=== PATIENT | female | born 1960 | race Caucasian/White ===

== ENCOUNTER 2018-11-20 09:02 | Emergency (ER) | payer OTHER ==
[~2018-11-20] VITALS: Ht 157.4 cm; Wt 80.3 kg
[~2018-11-20 09:02] MED LIST: 'PARAFON FORTE500 M1 PO; ALBUTEROL0.09 MG/A2 IH; ALBUTEROL0.09 MG/A2 INH; ASPIRIN ADULT L81 M1 PO; AUGMENTIN 875 M1 TAB PO; CIPROFLOXACIN500 MG PO; CLARITIN10 MG PO; CYCLOBENZAPRINE10 MG PO; DARVOCET N 1001 TAB PO; DAYPRO600 M1 PO; DIFLUCAN150 MG PO; FLEXERIL10 MG PO; FLEXERIL5 MG PO; GABAPENTIN300 MG PO; GLUCOPHAGE1000 MG PO; GLUCOTROL5 M1 PO; HYDROCODONE BIT1 T11 PO; JANUVIA100 MG PO; JANUVIA50 MG PO; LANTUS100 U/ML SC; LEVEMIR100 U/ML SC; LEVOFLOXACIN500 MG PO; MEDROL DOSEPAK4 MG PO; MOTRIN800 MG PO; Motrin,Rufen800 MG PO; NAPROSYN500 MG PO; NORCO 325 MG-51 TAB PO; NORFLEX100 MG PO; PERCOCET 325 MG1 TA2 PO; PERCOCET 325 MG1 TA7 PO; PREDNISONE10 MG PO; PREDNISONE20 M1 PO; PROTONIX40 MG PO; ROBAXIN750 MG PO; ROBITUSSIN AC 10 MG/ PO; ROBITUSSIN AC 110 ML PO; SINGULAIR10 MG PO; SKELAXIN800 MG PO; TESSALON PERLE100 M1 PO; TOBRADEX 0.1%-0.5 ML OPH; VIBRAMYCIN100 MG PO; VICODIN 5/500 505 MG PO; VICODIN 500 MG-1 TAB PO; VICODIN ES 7501 TAB PO; ZITHROMAX Z PA250 MG PO; ZITHROMAX250 MG PO; ZOCOR40 MG PO
[2018-11-20] MEDS ORDERED: FLONASE ALLERG9.9 ML NAS (11:29)
[2018-11-20] MEDS ORDERED: ZYRTEC10 MG PO (11:29)
== END 2018-11-20 11:42 | disposition home or self-care (01) ==
LOC: ED 09:02
DX: M25.562 Pain in left knee (principal); M17.12 Unilateral primary osteoarthritis, left knee; J32.8 Other chronic sinusitis; Z98.890 Other specified postprocedural states; Z90.89 Acquired absence of other organs; X50.1XXA Overexertion from prolonged static or awkward postures, initial encounter; Y93.89 Activity, other specified; Y92.89 Other specified places as the place of occurrence of the external cause; Y99.9 Unspecified external cause status

== ENCOUNTER 2019-10-01 14:08 | Emergency (ER) | payer SELFPAY ==
[~2019-10-01] VITALS: Ht 157.4 cm; Wt 85.3 kg
[~2019-10-01 14:08] MED LIST changes: +FLONASE ALLERG9.9 ML NAS; +ZYRTEC10 MG PO
[2019-10-01 14:52] LABS: BASO # 0.1 10*3/uL (0.0-0.1); BASO % 1.7 % (0.0-1.0); EOS # 0.2 10*3/uL (0.0-0.4); EOS % 3.3 % (1.0-4.0); HEMATOCRIT 46.9 % (37.0-47.0); HEMOGLOBIN 15.2 g/dl (12.0-16.0); LYMPH # 1.9 10*3/uL (1.3-4.4); LYMPH % 33.4 % (27.0-41.0); MEAN CELL VOLUME 90.9 fl (81.0-99.0); MEAN CORPUSCULAR HGB 29.5 pg (27.0-31.0); MEAN CORPUSCULAR HGB CONC 32.4 g/dl (33.0-37.0); MEAN PLATELET VOLUME 9.3 fl (9.6-12.3); MONO # 0.4 10*3/uL (0.1-1.0); MONO % 6.6 % (3.0-9.0); NEUT # 3.2 10*3/uL (2.3-7.9); NEUT % 54.8 % (47.0-73.0); PLATELET COUNT AUTOMATED 208 10*3/uL (130-400); RED BLOOD COUNT 5.16 10*6/uL (4.10-5.10); RED CELL DISTRI WIDTH 12.7 % (0-14.5); WHITE BLOOD COUNT 5.8 10*3/uL (4.8-10.8)
[2019-10-01 15:02] LABS: ACT PARTIAL THROMBO TIME 27.7 SECONDS (20.0-32.1); INTERNATIONAL NORM RATIO 0.9 (2.0-3.5)
[2019-10-01 15:09] LABS: ALBUMIN 3.6 gm/dl (3.1-4.5); ALKALINE PHOSPHATASE 94 U/L (45-117); BUN 6 mg/dl (7-24); CHLORIDE 105 mmol/L (98-107); CREATININE 0.76 mg/dL (0.55-1.02); LIPASE 48 U/L (73-393); POTASSIUM 3.6 mmol/L (3.5-5.1); SGOT/AST 12 IU/L (3-35); SGPT/ALT 17 U/L (12-78); SODIUM 138 mmol/L (136-145); TOTAL PROTEIN 8.1 gm/dL (6.4-8.2); TROPONIN I < 0.015 ng/ml (<0.045)
[2019-10-01] MEDS ORDERED: PROAIR HFA8.5 GM INH (16:35)
[2019-10-01] MEDS ORDERED: MEDROL DOSEPAK4 MG PO (16:35)
== END 2019-10-01 16:47 | disposition home or self-care (01) ==
LOC: ED 14:08
PROVIDERS: Nurse Practitioner Family
DX: J40 Bronchitis, not specified as acute or chronic (principal); M19.90 Unspecified osteoarthritis, unspecified site; K21.9 Gastro-esophageal reflux disease without esophagitis; E11.9 Type 2 diabetes mellitus without complications; F17.200 Nicotine dependence, unspecified, uncomplicated

== ENCOUNTER 2019-11-15 13:23 | Emergency (ER) | payer BC ==
[~2019-11-15] VITALS: Ht 157.4 cm; Wt 86.2 kg
[~2019-11-15 13:23] MED LIST changes: +PROAIR HFA8.5 GM INH
[2019-11-15] MEDS ORDERED: PREDNISONE20 M1 PO (14:45)
[2019-11-15] MEDS ORDERED: PROVENTIL HFA6.7 GM INH (14:45)
[2019-11-15] MEDS ORDERED: AVPAK AZITHROM250 MG PO (14:45)
== END 2019-11-15 14:50 | disposition home or self-care (01) ==
LOC: ED 13:23
DX: J40 Bronchitis, not specified as acute or chronic (principal); B34.9 Viral infection, unspecified; M19.90 Unspecified osteoarthritis, unspecified site; E11.9 Type 2 diabetes mellitus without complications; E66.9 Obesity, unspecified; I10 Essential (primary) hypertension; K21.9 Gastro-esophageal reflux disease without esophagitis; G89.29 Other chronic pain; Z79.899 Other long term (current) drug therapy; F17.200 Nicotine dependence, unspecified, uncomplicated; Z98.890 Other specified postprocedural states

== ENCOUNTER 2020-02-14 15:48 | Emergency (ER) | payer OTHER, BC ==
[~2020-02-14] VITALS: Ht 157.4 cm; Wt 83.9 kg
[~2020-02-14 15:48] MED LIST changes: +AVPAK AZITHROM250 MG PO; +PROVENTIL HFA6.7 GM INH
[2020-02-14] MEDS ORDERED: CEPHALEXIN500 M1 PO (16:48)
[2020-02-14] MEDS ORDERED: ANTIBIOTIC28.4 GM T (16:48)
[2020-02-14] MEDS ORDERED: IBU800 MG PO (16:49)
== END 2020-02-14 17:07 | disposition home or self-care (01) ==
LOC: ED 15:48
DX: T22.211A Burn of second degree of right forearm, initial encounter (principal); T31.0 Burns involving less than 10% of body surface; K21.9 Gastro-esophageal reflux disease without esophagitis; E11.9 Type 2 diabetes mellitus without complications; F17.200 Nicotine dependence, unspecified, uncomplicated; X12.XXXA Contact with other hot fluids, initial encounter; Y93.89 Activity, other specified; Y92.89 Other specified places as the place of occurrence of the external cause; Y99.8 Other external cause status

== ENCOUNTER 2020-05-07 17:09 | Emergency (ER) | payer SELFPAY ==
[~2020-05-07] VITALS: Ht 157.4 cm; Wt 86.2 kg
[~2020-05-07 17:09] MED LIST changes: +ANTIBIOTIC28.4 GM T; +CEPHALEXIN500 M1 PO; +IBU800 MG PO
[2020-05-07 17:51] LABS: BASO # 0.1 10*3/uL (0.0-0.1); BASO % 0.8 % (0.0-1.0); EOS # 0.1 10*3/uL (0.0-0.4); EOS % 0.8 % (1.0-4.0); HEMATOCRIT 43.3 % (37.0-47.0); LYMPH # 1.5 10*3/uL (1.3-4.4); LYMPH % 15.2 % (27.0-41.0); MEAN CELL VOLUME 89.6 fl (81.0-99.0); MEAN CORPUSCULAR HGB 28.8 pg (27.0-31.0); MEAN CORPUSCULAR HGB CONC 32.1 g/dl (33.0-37.0); MEAN PLATELET VOLUME 8.8 fl (9.6-12.3); MONO # 0.5 10*3/uL (0.1-1.0); MONO % 4.9 % (3.0-9.0); NEUT # 7.6 10*3/uL (2.3-7.9); NEUT % 78.1 % (47.0-73.0); PLATELET COUNT AUTOMATED 239 10*3/uL (130-400); RED BLOOD COUNT 4.83 10*6/uL (4.10-5.10); RED CELL DISTRI WIDTH 12.6 % (0-14.5); WHITE BLOOD COUNT 9.7 10*3/uL (4.8-10.8)
[2020-05-07 18:01] LABS: ACT PARTIAL THROMBO TIME 29.5 SECONDS (20.0-32.1)
[2020-05-07 18:07] LABS: ALBUMIN 3.2 gm/dl (3.1-4.5); ALKALINE PHOSPHATASE 104 U/L (45-117); BUN 5 mg/dl (7-24); CHLORIDE 101 mmol/L (98-107); CREATININE 0.76 mg/dL (0.55-1.02); POTASSIUM 3.5 mmol/L (3.5-5.1); SGOT/AST 23 IU/L (3-35); SGPT/ALT 30 U/L (12-78); SODIUM 136 mmol/L (136-145); TOTAL PROTEIN 8.1 gm/dL (6.4-8.2)
[2020-05-07 18:14] LABS: TROPONIN I < 0.015 ng/ml (<0.045)
[2020-05-07] MEDS ORDERED: ZITHROMAX250 MG PO (20:28)
== END 2020-05-07 21:22 | disposition home or self-care (01) ==
LOC: ED 17:09
PROVIDERS: Emergency Medicine
DX: J18.9 Pneumonia, unspecified organism (principal); Z79.899 Other long term (current) drug therapy; Z79.2 Long term (current) use of antibiotics; Z79.84 Long term (current) use of oral hypoglycemic drugs

== ENCOUNTER → 2020-11-09 | Outpatient (CLI) | payer BC ==
[2020-11-09 11:57] LABS: BASO # 0.1 10*3/uL (0.0-0.1); BASO % 1.6 % (0.0-1.0); EOS # 0.2 10*3/uL (0.0-0.4); EOS % 3.1 % (1.0-4.0); HEMATOCRIT 46.3 % (37.0-47.0); LYMPH # 1.9 10*3/uL (1.3-4.4); LYMPH % 36.5 % (27.0-41.0); MEAN CELL VOLUME 90.4 fl (81.0-99.0); MEAN CORPUSCULAR HGB 29.1 pg (27.0-31.0); MEAN CORPUSCULAR HGB CONC 32.2 g/dl (33.0-37.0); MONO # 0.3 10*3/uL (0.1-1.0); MONO % 6.1 % (3.0-9.0); NEUT # 2.7 10*3/uL (2.3-7.9); NEUT % 52.3 % (47.0-73.0); PLATELET COUNT AUTOMATED 199 10*3/uL (130-400); RED BLOOD COUNT 5.12 10*6/uL (4.10-5.10); RED CELL DISTRI WIDTH 13.1 % (0-14.5); WHITE BLOOD COUNT 5.1 10*3/uL (4.8-10.8)
[2020-11-09 12:28] LABS: ALBUMIN 3.3 gm/dl (3.1-4.5); ALKALINE PHOSPHATASE 102 U/L (45-117); BUN 8 mg/dl (7-24); CHLORIDE 103 mmol/L (98-107); CHOLESTEROL 159 mg/dL (<200); CREATININE 0.69 mg/dL (0.55-1.02); HDL CHOLESTEROL 50 mg/dl (40-60); LDL CHOLESTEROL 92 mg/dL (9-159); POTASSIUM 4.5 mmol/L (3.5-5.1); SGOT/AST 18 IU/L (3-35); SGPT/ALT 15 U/L (12-78); SODIUM 137 mmol/L (136-145); TOTAL PROTEIN 7.6 gm/dL (6.4-8.2); TRIGLYCERIDES 85 mg/dl (<150); VLDL CHOLESTEROL 17 mg/dL (6-40)
[2020-11-10 08:08] LABS: HEP B CORE AB, IGM Negative (Negative); HEPATITIS B SURFACE AG Negative (Negative)
[2020-11-10 08:35] LABS: HEPATITIS C VIRUS ANTIBODY 6.7 s/co (0.0-0.9)
== END | disposition home or self-care (01) ==
LOC: LAB 11:24
PROVIDERS: Family Medicine; ATTEND Nurse Practitioner Family
DX: R06.02 Shortness of breath (principal); E11.9 Type 2 diabetes mellitus without complications; R53.83 Other fatigue; Z72.0 Tobacco use; Z86.19 Personal history of other infectious and parasitic diseases

== ENCOUNTER → 2020-11-11 | Outpatient (CLI) | payer BC ==
[2020-11-13 00:05] LABS: HEPATITIS C QNT HCV Not Detected IU/mL (.)
== END | disposition home or self-care (01) ==
LOC: LAB 17:44
PROVIDERS: ATTEND Nurse Practitioner Family
DX: B19.20 Unspecified viral hepatitis C without hepatic coma (principal)

== ENCOUNTER → 2020-11-21 | Outpatient (CLI) | payer BC | END | disposition home or self-care (01) | LOC: CT 11-17 15:00 | PROVIDERS: ATTEND Nurse Practitioner Family | DX: J43.9 Emphysema, unspecified (principal); J98.4 Other disorders of lung; R91.8 Other nonspecific abnormal finding of lung field; I25.10 Atherosclerotic heart disease of native coronary artery without angina pectoris ==

== ENCOUNTER → 2021-06-07 | Outpatient (CLI) | payer BC | END | disposition home or self-care (01) | LOC: RAD 13:05 | PROVIDERS: ATTEND Family Medicine | DX: J44.9 Chronic obstructive pulmonary disease, unspecified (principal) ==

== ENCOUNTER 2023-07-29 17:34 | Emergency (ER) | payer SELFPAY ==
[~2023-07-29] VITALS: Ht 157.4 cm; Wt 84.4 kg
[2023-07-29 18:10] LABS: BASO # 0.1 10*3/uL (0.0-0.1); BASO % 1.3 % (0.0-1.0); EOS # 0.1 10*3/uL (0.0-0.4); EOS % 2.1 % (1.0-4.0); HEMATOCRIT 50.4 % (37.0-47.0); LYMPH # 1.9 10*3/uL (1.3-4.4); LYMPH % 35.3 % (27.0-41.0); MEAN CELL VOLUME 93.9 fl (81.0-99.0); MEAN CORPUSCULAR HGB 29.2 pg (27.0-31.0); MEAN CORPUSCULAR HGB CONC 31.2 g/dl (33.0-37.0); MEAN PLATELET VOLUME 8.9 fl (9.6-12.3); MONO # 0.4 10*3/uL (0.1-1.0); MONO % 6.5 % (3.0-9.0); NEUT # 2.9 10*3/uL (2.3-7.9); NEUT % 54.6 % (47.0-73.0); PLATELET COUNT AUTOMATED 223 10*3/uL (130-400); RED BLOOD COUNT 5.37 10*6/uL (4.10-5.10); WHITE BLOOD COUNT 5.4 10*3/uL (4.8-10.8)
[2023-07-29 18:34] LABS: ALKALINE PHOSPHATASE 89 U/L (46-116); BUN 6 mg/dl (9-23); CHLORIDE 105 mmol/L (98-107); LIPASE 25 U/L (12-53); POTASSIUM 3.9 mmol/L (3.4-5.1); SGPT/ALT 14 U/L (5-49); TOTAL PROTEIN 7.8 gm/dL (6.0-8.0)
[2023-07-29 19:04] LABS: BILIRUBIN Negative (Negative); BLOOD Negative (Negative); CLARITY Turbid (Clear); COLOR Dark Yellow (Yellow); GLUCOSE Negative (Negative); KETONE Trace (Negative); LEUKO ESTERASE 2+ (Negative); NITRITE Positive (Negative); SPECIFIC GRAVITY 1.025 (1.001-1.030)
[2023-07-29 19:30] LABS: BACTERIA 4+; EPITHELIAL CELLS 16-20; WBC 16-20 wbc/hpf (0-5)
[2023-07-29] MEDS ORDERED: PREDNISONE20 M1 PO (19:33)
[2023-07-29] MEDS ORDERED: CIPRO500 MG PO (19:33)
== END 2023-07-29 19:43 | disposition home or self-care (01) ==
LOC: ED 17:34
PROVIDERS: Internal Medicine
DX: J06.9 Acute upper respiratory infection, unspecified (principal); R05.9 Cough, unspecified; R79.82 Elevated C-reactive protein (CRP); N39.0 Urinary tract infection, site not specified; K21.9 Gastro-esophageal reflux disease without esophagitis; E11.9 Type 2 diabetes mellitus without complications; R11.2 Nausea with vomiting, unspecified; R19.7 Diarrhea, unspecified; Z98.890 Other specified postprocedural states; Z90.12 Acquired absence of left breast and nipple; Z87.891 Personal history of nicotine dependence; Z20.822 Contact with and (suspected) exposure to COVID-19

== ENCOUNTER 2023-09-29 20:53 | Emergency (ER) | payer SELFPAY ==
[~2023-09-29] VITALS: Ht 154.9 cm; Wt 83.9 kg
[~2023-09-29 20:53] MED LIST changes: +CIPRO500 MG PO
[2023-09-29] MEDS ORDERED: ACETAMINOPHEN 325 MG TAB PO ONE (21:30)
[2023-09-29] MEDS ORDERED: MELOXICAM15 MG PO (23:50)
== END 2023-09-30 00:04 | disposition home or self-care (01) ==
LOC: ED 20:53
DX: R07.81 Pleurodynia (principal); E11.9 Type 2 diabetes mellitus without complications; K21.9 Gastro-esophageal reflux disease without esophagitis; Z98.890 Other specified postprocedural states; Z90.12 Acquired absence of left breast and nipple

== ENCOUNTER 2024-01-23 16:25 | Emergency (ER) | payer OTHER ==
[~2024-01-23] VITALS: Ht 157.4 cm; Wt 84.4 kg
[~2024-01-23 16:25] MED LIST changes: +MELOXICAM15 MG PO
[2024-01-23] MEDS ORDERED: ERYTHROMYCIN OPH1 GM OPH (17:31)
[2024-01-23] MEDS ORDERED: ERYTHROMYCIN 1 GM TUBE OPH ONE (17:35)
== END 2024-01-23 17:42 | disposition home or self-care (01) ==
LOC: ED 16:25
DX: H00.012 Hordeolum externum right lower eyelid (principal); K21.9 Gastro-esophageal reflux disease without esophagitis; E11.9 Type 2 diabetes mellitus without complications; Z98.890 Other specified postprocedural states; Z90.12 Acquired absence of left breast and nipple

== ENCOUNTER → 2024-01-29 | Outpatient (CLI) | payer OTHER ==
[~2024-01-29] MED LIST changes: +ERYTHROMYCIN OPH1 GM OPH
== END | disposition home or self-care (01) ==
LOC: CARD 08:07 → CT 10:00
PROVIDERS: ATTEND Physician Assistant
DX: Z12.2 Encounter for screening for malignant neoplasm of respiratory organs (principal); R01.1 Cardiac murmur, unspecified; R91.1 Solitary pulmonary nodule; I25.10 Atherosclerotic heart disease of native coronary artery without angina pectoris; J43.9 Emphysema, unspecified; I70.0 Atherosclerosis of aorta; F17.200 Nicotine dependence, unspecified, uncomplicated

== ENCOUNTER → 2024-02-13 | Outpatient (CLI) | payer OTHER | END | disposition home or self-care (01) | LOC: MAMMO 00:41 | PROVIDERS: ATTEND Physician Assistant | DX: Z12.31 Encounter for screening mammogram for malignant neoplasm of breast (principal) ==

== ENCOUNTER → 2024-05-04 | Outpatient (CLI) | payer OTHER | END | disposition home or self-care (01) | LOC: RAD 09:23 | PROVIDERS: ATTEND Nurse Practitioner Women's Health | DX: Z13.820 Encounter for screening for osteoporosis (principal); N95.1 Menopausal and female climacteric states ==

== ENCOUNTER 2024-05-27 21:21 | Emergency (ER) | payer OTHER ==
[~2024-05-27] VITALS: Ht 157.4 cm; Wt 91.6 kg
[2024-05-27] MEDS ORDERED: Acetaminophen/Hydrocodone 5 MG/325 MG TABLET PO ONE (21:40)
[2024-05-27] MEDS ORDERED: NAPROSYN500 MG PO (23:02)
== END 2024-05-27 23:57 | disposition home or self-care (01) ==
LOC: ED 21:21
DX: S50.01XA Contusion of right elbow, initial encounter (principal); S80.211A Abrasion, right knee, initial encounter; M17.11 Unilateral primary osteoarthritis, right knee; M54.2 Cervicalgia; K21.9 Gastro-esophageal reflux disease without esophagitis; E11.9 Type 2 diabetes mellitus without complications; F17.200 Nicotine dependence, unspecified, uncomplicated; Z98.890 Other specified postprocedural states; Z90.49 Acquired absence of other specified parts of digestive tract; W18.09XA Striking against other object with subsequent fall, initial encounter; Y93.01 Activity, walking, marching and hiking; Y92.89 Other specified places as the place of occurrence of the external cause; Y99.8 Other external cause status

== ENCOUNTER → 2024-08-27 | Outpatient (CLI) | payer OTHER | END | disposition home or self-care (01) | LOC: CT 08:38 | PROVIDERS: ATTEND Internal Medicine Critical Care Medicine | DX: R91.8 Other nonspecific abnormal finding of lung field (principal); J44.9 Chronic obstructive pulmonary disease, unspecified; I25.10 Atherosclerotic heart disease of native coronary artery without angina pectoris; J43.2 Centrilobular emphysema; K76.89 Other specified diseases of liver; Z87.891 Personal history of nicotine dependence; Z68.35 Body mass index [BMI] 35.0-35.9, adult; Z90.49 Acquired absence of other specified parts of digestive tract ==

== ENCOUNTER → 2024-09-21 | Outpatient (CLI) | payer OTHER | END | disposition home or self-care (01) | LOC: CARD 07:48 | PROVIDERS: ATTEND Internal Medicine Cardiovascular Disease | DX: I35.1 Nonrheumatic aortic (valve) insufficiency (principal); R01.1 Cardiac murmur, unspecified; R06.09 Other forms of dyspnea ==

== ENCOUNTER → 2025-07-26 | Outpatient (CLI) | payer OTHER ==
[2025-07-26 13:17] LABS: BASO # 0.1 10*3/uL (0.0-0.1); BASO % 1.7 % (0.0-1.0); BILIRUBIN Negative (Negative); BLOOD Trace-Lysed (Negative); CLARITY Cloudy (Clear); COLOR Dark Yellow (Yellow); EOS # 0.1 10*3/uL (0.0-0.4); EOS % 2.0 % (1.0-4.0); KETONE 1+ (Negative); LEUKO ESTERASE 2+ (Negative); MEAN CELL VOLUME 88.6 fl (81.0-99.0); MEAN CORPUSCULAR HGB 28.8 pg (27.0-31.0); MEAN PLATELET VOLUME 8.6 fl (9.6-12.3); MONO # 0.5 10*3/uL (0.1-1.0); MONO % 8.0 % (3.0-9.0); NEUT # 4.1 10*3/uL (2.3-7.9); NEUT % 67.9 % (47.0-73.0); NITRITE Positive (Negative); NUCLEATED RED BLOOD CELL 0.0 % (0.0-0.0); NUCLEATED RED BLOOD CELL 0.0 10*3/uL (0.0-0.0); PH 5.5 (4.5-8.0); PLATELET COUNT AUTOMATED 264 10*3/uL (130-400); RED CELL DISTRI WIDTH 12.6 % (0-14.5); SPECIFIC GRAVITY 1.025 (1.001-1.030); UROBILINOGEN 1.0 E.U./dl (0.0-1.0)
[2025-07-26 13:25] LABS: BACTERIA 4+; WBC 41-50 wbc/hpf (0-5)
[2025-07-26 13:28] LABS: ACT PARTIAL THROMBO TIME 28.5 SECONDS (20.0-32.1)
[2025-07-26 14:15] LABS: BUN 6 mg/dl (9-23); SGPT/ALT 9 U/L (5-49)
== END | disposition home or self-care (01) ==
LOC: LAB 12:00
PROVIDERS: ATTEND Orthopaedic Surgery
DX: Z01.818 Encounter for other preprocedural examination (principal); Z98.890 Other specified postprocedural states